=== PATIENT | female | born 1985 | race Caucasian/White ===

== ENCOUNTER → 2020-08-24 | Outpatient (CLI) | payer OTHER | END | disposition home or self-care (01) | LOC: STAR 14:14 | PROVIDERS: ATTEND Anesthesiology | DX: Z20.828 Contact with and (suspected) exposure to other viral communicable diseases (principal) | CPT/HCPCS: 87635 ==

== ENCOUNTER 2020-08-28 05:55 | Day surgery (SDC) | payer OTHER ==
[~2020-08-28] VITALS: Ht 162.6 cm; Wt 74.7 kg
[2020-08-28 06:20] VITALS: BP 110/75
[2020-08-28] MEDS ORDERED: LACTATED RINGERS 1,000 ML IV SCH (06:30)
[2020-08-28] MEDS ORDERED: CHLORHEXIDINE 15 ML UDC MM ONE (06:30)
[2020-08-28] MEDS ORDERED: EPINEPHRINE 1 MG/ML, 1ML ONE (06:45)
[2020-08-28] MEDS ORDERED: BUPIVACAINE/PF 0.25% ONE (06:45)
[2020-08-28] MEDS ORDERED: SILVER NITRATE STICK TP ONE (06:45)
[2020-08-28] MEDS ORDERED: MULT-658 PO (06:56)
[2020-08-28] MEDS ORDERED: DIPH25CA61 PO (06:56)
[2020-08-28 07:01] LABS: HCG UR SG 1.024 (1.003-1.030)
[2020-08-28 07:12] LABS: BASOPHILS % (AUTO) 1 % (0-1); EOSINOPHILS % (AUTO) 2 % (1-7); LYMPHOCYTES % (AUTO) 34 % (22-44); MEAN CORPUSCULAR HEMOGLOBIN 32.7 pg (27.0-34.8); MEAN CORPUSCULAR HGB CONC 33.4 g/dL (32.4-35.8); MEAN PLATELET VOLUME 9.2 fL (7.4-10.4); MONOCYTES % (AUTO) 9 % (2-9); NEUTROPHILS % (AUTO) 55 % (42-75); PLATELET COUNT 198 x10^3/uL (130-400); RED BLOOD COUNT 4.15 x10^6/uL (3.82-5.3); RED CELL DISTRIBUTION WIDTH 13.8 % (9.6-15.2)
[2020-08-28 07:17] LABS: MD NO
== END 2020-08-28 07:45 | disposition home or self-care (01) ==
LOC: OUT 05:55
PROVIDERS: ATTEND Obstetrics & Gynecology
DX: R87.613 High grade squamous intraepithelial lesion on cytologic smear of cervix (HGSIL) (principal); Z53.8 Procedure and treatment not carried out for other reasons; F17.210 Nicotine dependence, cigarettes, uncomplicated; Z33.1 Pregnant state, incidental; Z79.899 Other long term (current) drug therapy; Z98.890 Other specified postprocedural states
CPT/HCPCS: 36415; 81025; 84702; 85025; J0171; J7120

== ENCOUNTER → 2020-09-24 | Outpatient (CLI) | payer OTHER ==
[~2020-09-24] MED LIST: DIPH25CA61 PO; MULT-658 PO
[2020-09-24 15:15] LABS: BASOPHILS % (AUTO) 1 % (0-1); EOSINOPHILS % (AUTO) 2 % (1-7); LYMPHOCYTES % (AUTO) 36 % (22-44); MEAN CORPUSCULAR HEMOGLOBIN 33.2 pg (27.0-34.8); MEAN CORPUSCULAR HGB CONC 33.8 g/dL (32.4-35.8); MEAN PLATELET VOLUME 9.3 fL (7.4-10.4); MONOCYTES % (AUTO) 7 % (2-9); NEUTROPHILS % (AUTO) 55 % (42-75); PLATELET COUNT 208 x10^3/uL (130-400); RED BLOOD COUNT 4.22 x10^6/uL (3.82-5.3); RED CELL DISTRIBUTION WIDTH 13.1 % (9.6-15.2)
[2020-09-24 15:21] LABS: MD NO
== END | disposition home or self-care (01) ==
LOC: STAR 13:03
PROVIDERS: ATTEND Obstetrics & Gynecology
DX: Z01.812 Encounter for preprocedural laboratory examination (principal); O02.1 Missed abortion; O03.4 Incomplete spontaneous abortion without complication; Z20.828 Contact with and (suspected) exposure to other viral communicable diseases
CPT/HCPCS: 85025; 86901; 87635

== ENCOUNTER 2020-09-28 10:05 | Day surgery (SDC) | payer OTHER ==
[~2020-09-28] VITALS: Ht 162.6 cm; Wt 73.7 kg
[2020-09-28] MEDS ORDERED: BUPIVACAINE/PF 0.25% ONE (10:42)
[2020-09-28] MEDS ORDERED: OXYTOCIN 10 UNITS/ML, 1ML ONE (10:42)
[2020-09-28] MEDS ORDERED: MISOPROSTOL 200 MCG TABLET ONE (10:42)
[2020-09-28] MEDS ORDERED: SILVER NITRATE STICK TP ONE ×2 (10:43→12:35)
[2020-09-28] MEDS ORDERED: METHYLERGONOVINE 0.2 MG/ML IM ONE (10:43)
[2020-09-28 10:44] VITALS: BP 109/72
[2020-09-28] MEDS ORDERED: METOCLOPRAMIDE 5 MG/ML, 2ML IVPush PRN (11:00)
[2020-09-28] MEDS ORDERED: LABETALOL 5MG/ML, 20ML IV PRN (11:00)
[2020-09-28] MEDS ORDERED: OXYcodone 5 MG/5 ML ORAL.SOL UDC PO PRN (11:00)
[2020-09-28] MEDS ORDERED: METOPROLOL 1 MG/ML, 5ML IV PRN (11:00)
[2020-09-28] MEDS ORDERED: ALBUTEROL SULFATE 2.5 MG/3 ML NPPB PRN (11:00)
[2020-09-28] MEDS ORDERED: EPHEDRINE 50 MG/ML, 1ML IVPush PRN (11:00)
[2020-09-28] MEDS ORDERED: hydrALAzine 20 MG/ML, 1ML IV PRN (11:00)
[2020-09-28] MEDS ORDERED: CHLORHEXIDINE 15 ML UDC MM ONE (11:00)
[2020-09-28] MEDS ORDERED: PROMETHAZINE 12.5 MG SUPP PR PRN (11:00)
[2020-09-28] MEDS ORDERED: HALOPERIDOL 5 MG/ML IV PRN (11:00)
[2020-09-28] MEDS ORDERED: LACTATED RINGERS 1,000 ML IV SCH (11:00)
[2020-09-28] MEDS ORDERED: ACETAMINOPHEN 325 MG TABLET PO PRN (11:00)
[2020-09-28] MEDS ORDERED: LORazepam 2 MG/ML, 1ML IVPush PRN (11:00)
[2020-09-28] MEDS ORDERED: HYDROmorphone 1 MG/ML, 1ML INJ IVPush PRN (11:00)
[2020-09-28] MEDS ORDERED: FENTANYL PF 100 MCG/2ML IV PRN (11:00)
[2020-09-28] MEDS ORDERED: ONDANSETRON 2MG/ML, 2ML IVPush PRN (11:00)
[2020-09-28] MEDS ORDERED: CEFAZOLIN 1,000 MG ONE (12:01)
[2020-09-28] MEDS ORDERED: ONDANSETRON 2MG/ML, 2ML ONE (12:01)
[2020-09-28] MEDS ORDERED: KETOROLAC 30 MG/1 ML ONE (12:01)
[2020-09-28] MEDS ORDERED: FENTANYL PF 100 MCG/2ML ONE ×2 (12:02→12:37)
[2020-09-28] MEDS ORDERED: MIDAZOLAM 1 MG/ML, 2ML ONE ×2 (12:16→12:37)
[2020-09-28] MEDS ORDERED: DEXAMETHASONE 4 MG/ML, 5ML ONE (12:16)
[2020-09-28] MEDS ORDERED: BUPIVACAINE/PF 0.25% INFIL ONE (12:34)
== END 2020-09-28 14:15 | disposition home or self-care (01) ==
LOC: OUT 10:05
PROVIDERS: ATTEND Obstetrics & Gynecology
DX: O03.4 Incomplete spontaneous abortion without complication (principal); F17.200 Nicotine dependence, unspecified, uncomplicated; Z79.899 Other long term (current) drug therapy
CPT/HCPCS: 59812; 88305; J1100; J2250; J3010; J7120; J0690; J1885; J2405; J2210; J2590

== ENCOUNTER 2021-04-21 09:23 | Day surgery (SDC) | payer OTHER ==
[2021-04-20 12:50] LABS: BASOPHILS % (AUTO) 1 % (0-1); EOSINOPHILS % (AUTO) 2 % (1-7); LYMPHOCYTES % (AUTO) 33 % (22-44); MEAN CORPUSCULAR HEMOGLOBIN 33.1 pg (27.0-34.8); MEAN CORPUSCULAR HGB CONC 33.9 g/dL (32.4-35.8); MEAN PLATELET VOLUME 8.6 fL (7.4-10.4); MONOCYTES % (AUTO) 8 % (2-9); NEUTROPHILS % (AUTO) 56 % (42-75); PLATELET COUNT 229 x10^3/uL (130-400); RED BLOOD COUNT 4.35 x10^6/uL (3.82-5.3); RED CELL DISTRIBUTION WIDTH 12.9 % (9.6-15.2)
[~2021-04-21] VITALS: Ht 162.6 cm; Wt 74.9 kg
[~2021-04-21 09:23] MED LIST changes: +FENTANYL PF 250 MCG/5ML ONE; +MIDAZOLAM 1 MG/ML, 2ML ONE
[2021-04-21] MEDS ORDERED: LACTATED RINGERS 1,000 ML IV SCH (10:00)
[2021-04-21] MEDS ORDERED: CHLORHEXIDINE 15 ML UDC PO ONE (10:00)
[2021-04-21] MEDS ORDERED: LIDOCAINE-MPF 1%, 2ML INFIL ONE (10:00)
[2021-04-21 10:03] VITALS: BP 107/73
[2021-04-21] MEDS ORDERED: EPINEPHRINE 1 MG/ML, 1ML ONE (10:31)
[2021-04-21] MEDS ORDERED: BUPIVACAINE/PF 0.25% ONE (10:31)
[2021-04-21] MEDS ORDERED: FENTANYL PF 250 MCG/5ML ONE (12:06)
[2021-04-21] MEDS ORDERED: METOCLOPRAMIDE 5 MG/ML, 2ML ONE (12:06)
[2021-04-21] MEDS ORDERED: NEOSTIGMINE 1 MG/ML, 10ML ONE (12:06)
[2021-04-21] MEDS ORDERED: ONDANSETRON 2MG/ML, 2ML ONE (12:06)
[2021-04-21] MEDS ORDERED: KETOROLAC 30 MG/1 ML ONE (12:06)
[2021-04-21] MEDS ORDERED: PROPOFOL 10 MG/ML, 20ML ONE (12:06)
[2021-04-21] MEDS ORDERED: CEFAZOLIN 1,000 MG ONE (12:06)
[2021-04-21] MEDS ORDERED: LIDOCAINE-MPF 2% ,5ML ONE (12:06)
[2021-04-21] MEDS ORDERED: ROCURONIUM 10MG/ML,5ML ONE (12:06)
[2021-04-21] MEDS ORDERED: GLYCOPYRROLATE 0.2MG/1ML, 5ML ONE (12:06)
[2021-04-21] MEDS ORDERED: SUCCINYLCHOLINE 20 MG/ML, 10ML ONE (12:06)
[2021-04-21] MEDS ORDERED: DEXAMETHASONE 4 MG/ML, 5ML ONE (12:06)
[2021-04-21] MEDS ORDERED: PROPOFOL 50 ML ONE (12:26)
[2021-04-21] MEDS ORDERED: ACETAMINOPHEN 325 MG TABLET PO PRN (13:00)
[2021-04-21] MEDS ORDERED: ONDANSETRON 2MG/ML, 2ML IVPush PRN (13:00)
[2021-04-21] MEDS ORDERED: OXYcodone 5 MG/5 ML ORAL.SOL UDC PO PRN (13:00)
[2021-04-21] MEDS ORDERED: LORazepam 2 MG/ML, 1ML IVPush PRN (13:00)
[2021-04-21] MEDS ORDERED: HYDROmorphone 1 MG/ML, 1ML INJ IVPush PRN (13:00)
[2021-04-21] MEDS ORDERED: MEPERIDINE/PF 25MG/0.5ML IVPush PRN (13:00)
[2021-04-21] MEDS ORDERED: PROMETHAZINE 25 MG/ML, 1ML IVPush PRN (13:00)
[2021-04-21] MEDS ORDERED: METHOCARBAMOL 1,000 MG in DEXTROSE 5% 100 ML IV PRN (13:00)
[2021-04-21] MEDS ORDERED: FENTANYL PF 100 MCG/2ML IV PRN (13:00)
[2021-04-21] MEDS ORDERED: MEPERIDINE/PF 50 MG/ML ONE (13:18)
[2021-04-21] MEDS ORDERED: ACETAMINOPHEN 650 MG/20.3 ML UDC ONE (14:25)
== END 2021-04-21 16:05 | disposition home or self-care (01) ==
LOC: OUT 09:23
PROVIDERS: ATTEND Obstetrics & Gynecology
DX: Z30.2 Encounter for sterilization (principal); D06.0 Carcinoma in situ of endocervix; N73.6 Female pelvic peritoneal adhesions (postinfective)
CPT/HCPCS: 36415; 57520; 58661; 84703; 85025; 88302; 88305; 88307; J0171; J0330; J0690; J1100; J1885; J2175; J2250; J2405; J2704; J2710; J2765; J3010; J7120